=== PATIENT | male | born 1980 | race American Indian/Alaskan Native ===

== ENCOUNTER 2017-12-31 21:54 | Emergency (ER) | payer OTHER ==
[2017-12-31 22:16] VITALS: BMI 50.9
[2017-12-31 22:42] VITALS: BP 152/95; PULSE 84; RESP 18; TEMP 97.9; O2SAT 95
[2017-12-31] MEDS ORDERED: Oxycodone/Acetaminophen 5/325 mg Tab PO STA (23:14)
--- NOTE | 2017-12-31 23:40 | ED PDOC ---
Arrival/HPI - General Chief Complaint: Dental Pain Time Seen by Provider: 12/31/17 23:09 Historian: Patient - History of Present Illness Narrative History of Present Illness (Text): 01/01/18 01:31 37-year-old male presents today with a 2 day history of right upper dental pain. Patient states he has a history of dental fracture in the past and was told he needed to have it removed but never followed with the dentist. Patient states he is now having pain and noticed some swelling to the right upper gums. Patient denies fevers or chills. No chest pain or shortness of breath. Patient denies dizziness or weakness. Patient denies difficulty breathing or swallowing. Patient states he has a follow-up appointment with the dentist tomorrow. No medications have been taken for pain. Patient states he didn't sleep well last night due to the pain. Time/Duration: Other (2 days) Past Medical History - Provider Review Nursing Documentation Reviewed: Yes - Travel History Have you recently traveled outside [place] w/in the past 3 mons?: No - Cardiac Hx Cardiac Disorders: No - Pulmonary Hx Respiratory Disorders: No - Neurological Hx Neurological Disorder: No - HEENT Hx HEENT Disorder: No - Renal Hx Renal Disorder: Yes Hx Renal Failure: Yes - Endocrine/Metabolic Hx Endocrine Disorders: No - Hematological/Oncological Hx Blood Disorders: No - Integumentary Hx Dermatological Disorder: No - Musculoskeletal/Rheumatological Hx Musculoskeletal Disorders: No - Gastrointestinal Hx Gastrointestinal Disorders: No - Genitourinary/Gynecological Hx Genitourinary Disorders: No - Psychiatric Hx Psychophysiologic Disorder: No Hx Substance Use: No - Surgical History Hx Cardiac Catheterization: Yes Family/Social History - Physician Review Nursing Documentation Reviewed: Yes Family/Social History: Unknown Family HX Smoking Status: Never Smoked Hx Alcohol Use: No Hx Substance Use: No Allergies/Home Meds Allergies/Adverse Reactions: Allergies ceftriaxone [From Rocephin] Allergy (Verified 12/31/17 22:16) RASH Review of Systems - Review of Systems Constitutional: absent: Fatigue, Fevers ENT: absent: Sore Throat, Sinus Congestion Respiratory: Cough (occasional cough (improving; had xrays 3 days ago at [facility] [place]- no PNA per patient)). absent: SOB Cardiovascular: absent: Chest Pain, Palpitations Gastrointestinal: absent: Abdominal Pain, Nausea, Vomiting Genitourinary Male: absent: Dysuria, Frequency Musculoskeletal: Arthralgias (dental apin). absent: Back Pain, Neck Pain Skin: absent: Laceration Neurological: absent: Headache, Dizziness Psychiatric: absent: Anxiety, Depression Physical Exam Vital Signs Reviewed: Yes Vital Signs Temp Pulse Resp BP Pulse Ox 12/31/17 22:32 97.9 F 84 18 152/95 H 95 Temperature: Afebrile Blood Pressure: Hypertensive Pulse: Regular Respiratory Rate: Normal Appearance: Positive for: Well-Appearing, Non-Toxic, Comfortable Pain Distress: None Mental Status: Positive for: Alert and Oriented X 3 - Systems Exam Head: Present: Atraumatic Mouth: Present: Moist Mucous Membranes, Normal Lips, Normal Tounge. No: Dry, Drooling, Trismus, Normal Teeth (+ dental fracture noted to #5 tooth; + erythema and edema noted to medial aspect of gingiva. ) Pharnyx: Present: Normal. No: ERYTHEMA, EXUDATE Nose (External): Present: Atraumatic Nose (Internal): Present: Normal Inspection Neck: Present: Normal Range of Motion Respiratory/Chest: Present: Clear to Auscultation, Good Air Exchange. No: Respiratory Distress, Accessory Muscle Use, Wheezes, Retracting, Rhonchi, Tachypneic Cardiovascular: Present: Regular Rate and Rhythm Neurological: Present: GCS=15, Speech Normal Skin: Present: Warm, Dry Psychiatric: Present: Alert, Oriented x 3 Medical Decision Making ED Course and Treatment: 12/31/17 23:46 Patient is nontoxic well-appearing in no distress with stable vital signs. With a right upper dental pain 2 days. No trismus or drooling, moist mucous membranes percocet clindamycin po I advised follow-up with the dentist within the next 2 days. pt states he has appointment with Dentist tomorrow. I advised immediate return is symptoms worsen persist or if new concerning symptoms develop Patient verbalizes understanding of discharge instructions and need for immediate followup. all aspects of this case were discussed the attending of record. Impression: Toothache, dental abscess percocet; 1 tablet every 6 hours as needed for moderate to severe pain; may cause drowsiness. Clindamycin 1 tablet 3 times daily x 7 days Follow-up with the dentist tomorrow. Follow up with the primary care physician within the next 2 days. Return immediately if symptoms worsen persist or if new symptoms develop;high fevers, increasing pain, swelling, difficulty with swallowing or if any other concerning symptoms develop. - Medication Orders Current Medication Orders: Discontinued Medications Clindamycin HCl (Cleocin) 300 mg PO STAT STA PRN Reason: Protocol Stop: 12/31/17 23:14 Last Admin: 12/31/17 23:26 Dose: 300 mg Oxycodone/Acetaminophen (Percocet 5/325 Mg Tab) 1 tab PO STAT STA Stop: 12/31/17 23:15 Last Admin: 12/31/17 23:29 Dose: 1 tab MAR Pain Assessment Document 12/31/17 23:29 JOL (Rec: 12/31/17 23:30 JOL [facility] [place]-[id number]) Pain Reassessment Is this a pain reassessment? No Sleep Is patient sleeping during reassessment? No Presence of Pain Presence of Pain Yes Pain Scale Used Pain Scale Used Numeric Location Left, Right or Bilateral Right Upper or Lower Upper Pain Location Body Site Palate Description Intensity of Pain at present 6 Pain Behavior Restlessness Facial Grimacing Disposition/Present on Arrival - Present on Arrival Any Indicators Present on Arrival: No History of DVT/PE: No History of Uncontrolled Diabetes: No Urinary Catheter: No History of Decub. Ulcer: No History Surgical Site Infection Following: None - Disposition Have Diagnosis and Disposition been Completed?: Yes Diagnosis: Dental abscess, Toothache Disposition: HOME/ ROUTINE Disposition Time: 23:35 Patient Plan: Discharge Condition: GOOD Discharge Instructions (ExitCare): Tooth Abscess (DC), Dental Pain Additional Instructions: percocet; 1 tablet every 6 hours as needed for moderate to severe pain; may cause drowsiness. Clindamycin 1 tablet 3 times daily x 7 days Follow-up with the dentist tomorrow. Follow up with the primary care physician within the next 2 days. Return immediately if symptoms worsen persist or if new symptoms develop;high fevers, increasing pain, swelling, difficulty with swallowing or if any other concerning symptoms develop. Prescriptions: Clindamycin [Cleocin] 300 mg PO TID #21 cap oxyCODONE/Acetaminophen [Percocet 5/325 mg Tab] 1 tab PO Q6H PRN #5 tab PRN Reason: moderate to severe pain Referrals: Jayshree Sandoval MD [Primary Care Provider] - Follow up with primary Rafa Noyola DMD [Staff Provider] - Follow up with primary Asaf Vargas DMD [Non-Staff] - Follow up with primary Forms: [employer] (Setswana)
== END 2017-12-31 23:50 | disposition home or self-care (01) ==
LOC: ED 21:54
DX: K04.7 Periapical abscess without sinus (principal); K08.89 Other specified disorders of teeth and supporting structures